=== PATIENT | female | born 1995 | race Caucasian/White ===

== ENCOUNTER 2017-05-01 10:57 | Observation (INO) | payer OTHER ==
[~2017-05-01] VITALS: Ht 157.5 cm; Wt 69.9 kg
[2017-05-01] MEDS ORDERED: PREN-380 PO (11:37)
[2017-05-01] MEDS ORDERED: FERR325E14 PO (11:37)
[2017-05-01] MEDS ORDERED: LACTATED RINGERS 1,000 ML IV SCH (11:57)
[2017-05-01] MEDS ORDERED: METHYLERGONOVINE 0.2 MG/ML AMP IM PRN (12:00)
[2017-05-01] MEDS ORDERED: CARBOPROST 250 MCG/ML AMP IM PRN (12:00)
[2017-05-01] MEDS ORDERED: OXYTOCIN 10 UNITS/ML VIAL IM SCH (12:00)
[2017-05-01] MEDS ORDERED: MISOPROSTOL 25 MCG TAB VG PRN (12:05)
[2017-05-01] MEDS ORDERED: OXYTOCIN 20 UNITS in LACTATED RINGERS 1,000 ML IV SCH (12:05)
[2017-05-02] MEDS ORDERED: OXYTOCIN 20 UNITS in LACTATED RINGERS 1,000 ML IV SCH (12:05)
== END 2017-05-01 16:00 | disposition home or self-care (01) ==
LOC: INTOOBSV 10:57 → MFCC 10:57 → MLD 11:09
PROVIDERS: ADMIT Obstetrics & Gynecology; ATTEND Obstetrics & Gynecology
DX: Z34.93 Encounter for supervision of normal pregnancy, unspecified, third trimester (principal)
CPT/HCPCS: 76805; 96360; 96361; G0378; J7120